=== PATIENT | female | born 1950 | race Caucasian/White ===

== ENCOUNTER → 2020-08-04 | Outpatient (CLI) | payer MEDICARE ==
--- NOTE | 2020-08-04 16:36 | KCIC ---
Bilateral digital screening mammograms with 3-D tomosynthesis: Reason for examination: Routine screening. Comparison is made to previous study dated 09/21/2014. Bilateral mammograms in CC and oblique projections were obtained with 2-D imaging and 3-D tomosynthesis imaging on a Siemens Inspiration unit and reviewed on the workstation. Interpretation was made with the benefit of CAD. The skin and nipples show no abnormalities. No abnormal axillary lymph nodes are seen. The breast parenchyma is predominantly fatty. (Breast density: Category A.) There are no dominant masses, suspicious calcifications or architectural distortion. Benign calcifications are present. Impression: No evidence of malignancy. Recommend routine screening. BI-RAD Category 2: Benign. "Our facility is accredited by the [employer] Mammography [employer]." This patient's information has been entered into a reminder system for the patient to be notified with the results of her examination and a target date for the next mammogram. Electronically signed by: Cris Chandler MD (08/04/2020 4:33 PM) [email or web address]
== END ==
LOC: KCIC MAMMO 12:52
PROVIDERS: ATTEND Preventive Medicine Public Health & General Preventive Medicine
DX: Z12.31 Encounter for screening mammogram for malignant neoplasm of breast (principal); N64.89 Other specified disorders of breast
CPT/HCPCS: 77063; 77067